=== PATIENT | male | born 1975 | race Caucasian/White ===

== ENCOUNTER 2017-11-21 11:33 | Emergency (ER) | END 2017-11-21 16:50 | disposition home or self-care (01) ==

== ENCOUNTER 2018-01-15 02:29 | Emergency (ER) | END 2018-01-15 06:15 | disposition home or self-care (01) ==

== ENCOUNTER 2018-02-18 13:20 | Emergency (ER) | END 2018-02-18 13:43 | disposition left against medical advice (07) ==

== ENCOUNTER 2018-04-10 00:22 | Emergency (ER) | END 2018-04-10 03:46 | disposition home or self-care (01) ==